=== PATIENT | male | born 1950 | race Caucasian/White ===

== ENCOUNTER 2020-07-23 14:44 | Emergency (ER) | payer OTHER, SELFPAY ==
--- NOTE | ~2020-07-23 | XR_ITS ---
Examination: XR shoulder LT min 2V, XR scapula LT Indication: left shoulder pain Comparison: No pertinent prior studies are currently available for comparison. Technique: 2 views of the left shoulder and single view of the left scapula Findings: Humeral head is well-seated in the glenoid fossa. I do not appreciate any acute fracture or dislocation. Mild hypertrophic degenerative changes in the acromioclavicular joint. I do not appreciate any discrete scapular fracture. Visualized left upper chest and ribs unremarkable XR/XR scapula LT Impression: Mild degenerative changes in the acromioclavicular joints but no underlying acute bony abnormality.
--- NOTE | ~2020-07-23 | XR_ITS ---
Examination: XR shoulder LT min 2V, XR scapula LT Indication: left shoulder pain Comparison: No pertinent prior studies are currently available for comparison. Technique: 2 views of the left shoulder and single view of the left scapula Findings: Humeral head is well-seated in the glenoid fossa. I do not appreciate any acute fracture or dislocation. Mild hypertrophic degenerative changes in the acromioclavicular joint. I do not appreciate any discrete scapular fracture. Visualized left upper chest and ribs unremarkable XR/XR shoulder LT min 2V Impression: Mild degenerative changes in the acromioclavicular joints but no underlying acute bony abnormality.
[2020-07-23 16:09] VITALS: BP 181/84; PULSE 64; RESP 16; TEMP 36.5; O2SAT 97; BMI 35.4
--- NOTE | 2020-07-23 17:45 | ECG_ITS ---
Test Reason : LEFT SHOULDER PAIN Blood Pressure : / mmHG Vent. Rate : 056 BPM Atrial Rate : 056 BPM P-R Int : 154 ms QRS Dur : 092 ms QT Int : 430 ms P-R-T Axes : 021 -40 -03 degrees QTc Int : 414 ms Sinus bradycardia Left axis deviation Abnormal ECG No previous ECGs available Referred By: Esteban Oneal Electronically Signed By:MANDO STUBBS
--- NOTE | 2020-07-23 18:03 | ED.EXTPRO ---
HPI - Extremity Problem General Chief complaint: Extremity Injury, Upper Stated complaint: L BACK SHOULDER PAIN Time Seen by Provider: 07/23/20 17:45 Source: patient Mode of arrival: ambulatory Limitations: no limitations History of Present Illness HPI Narrative: Patient presents to for left shoulder/left scapular pain that is worse on movement since Tuesday. Patient states on Tuesday and Tuesday he went skiing and had repetitive movements of his upper extremity expresses left shoulder. Patient states since he felt a pinching sensation in left scapula and left shoulder going down left arm. Patient was seen at the [facility] on Tuesday had normal cardiac evaluation but had no imaging done of shoulder/back. Patient states pain is worse on movement. Patient denies any chest pain, shortness of breath, or chest pain on inspiration. Patient denies any blunt trauma to the shoulder, chest, back, or scapula. Patient denies Any blunt trauma to the body. Patient denies falling. Patient denies any headache or dizziness. Patient denies any head trauma. Related Data Previous Rx's Medication Instructions Recorded cyclobenzaprine 10 mg PO TID PRN #18 tab 07/23/20 naproxen 500 mg PO BID PRN #20 tab 07/23/20 Allergies Allergy/AdvReac Type Severity Reaction Status Date / Time Penicillins Allergy Intermediate HIVES Verified 07/23/20 20:26 Review of Systems Review of Systems: Yes all other systems are reviewed and are negative Constitutional: Constitutional: Reports as per HPI and Reports no additional constitutional complaints Eyes: Eyes: Reports as per HPI and Reports no additional eye complaints ENT: Reports system reviewed and no additional complaints, except as documented and Reports as per HPI Cardiovascular: Cardiovascular: Reports as per HPI and Reports no additional cardiovascular complaints Respiratory: Respiratory: Reports as per HPI and Reports no additional respiratory complaints Gastrointestinal: Gastrointestinal: Reports as per HPI and Reports no additional gastrointestinal complaints Genitourinary: Genitourinary: Reports no additional male genitourinary complaints and Reports as per HPI Musculoskeletal: Musculoskeletal: Reports no additional musculoskeletal complaints, Reports as per HPI and Reports arthralgias (shoulder, and left scapula) Neurologic: Reports system reviewed and no additional complaints, except as documented and Reports as per HPI Psychiatric: Psychiatric: Reports no additional psychiatric complaints and Reports as per HPI [facility] Past Medical History Medical History (Updated 07/24/20 @ 00:01 by Background Daemon) HTN (hypertension) Social History Social History Alcohol intake: current Alcohol intake frequency: 0-2 drinks per day Alcohol type: beer Smoking Status: Former smoker Use of substances other than those prescribed or required for medical reasons: No Advance Directives: Yes Advance Directives Information Provided: No Advance Directives on File: No Physical Exam Vital Signs: Vital Signs: Last Vital Signs Temp 97.7 F 07/23/20 16:09 Pulse 58 07/23/20 20:08 Resp 16 07/23/20 20:08 BP 161/78 H 07/23/20 20:08 Pulse Ox 98 07/23/20 20:08 Body Mass Index 35.4 Const: General: cooperative, healthy appearing, comfortable, no acute distress, well developed, alert, awake and Physically active Orientation/consciousness: patient oriented x3 HENMT: Head: Yes normal to inspection, Yes No palpable skull fracture present, Yes normocephalic, Yes atraumatic, No abrasion, No Bass's sign, No contusion, No cranial bruits, No hematoma, No laceration, No occipital foramen tenderness, No palpable skull fracture, No raccoon eyes, No scalp lesion, No scalp tenderness, No Temporal artery tenderness present and No periorbital ecchymosis Eyes: General: appearance normal, both eyes and all related structures Neck: Neck: Yes normal visual inspection, Yes full ROM, Yes no lymphadenopathy, Yes no meningeal signs, Yes trachea midline, Yes supple and No tender Chest: Chest palpation & inspection: normal inspection of the chest and normal palpation of entire chest wall Resp: Effort & Inspection: normal respiratory effort and able to speak in complete sentences Cardio: Jugular venous distension: no JVD Heart sounds: S1 normal heart sound present and S2 normal heart sound present GI: Inspection: Yes normal to inspection and No abdominal wall ecchymosis Palpation (GI): Soft to palpation, not firm, nontender, no guarding and not rigid : General: No CVA tenderness and Yes no CVA tenderness Back/Spine/Pelvis: Back: no CVA tenderness, No CVA tenderness and No back tenderness Skin: General skin exam: no rashes or lesions noted and elasticity normal Neuro: General: patient oriented x3, no meningeal signs and CN's II-XI intact bilaterally Cranial nerves: Yes CN's II-XII intact bilaterally Extrem: Other: Positive for tenderness on palpation of left posterior shoulder/scapular area and it is worse on movement. Left upper extremity negative for swelling, redness, mass on palpation or deformity. Lower extremity negative for swelling, pitting edema, calf tenderness Course Course Course Narrative: Due to patient's age will have a cardiac workup, but not suspecting aortic dissection or PE. Patient denies any chest pain radiating to the back. Patient denies any chest pain on inspiration. Patient only described as left shoulder scapular pain that is worse on movement and feel like this pinching sensation going down left arm he to skiing. Patient did not have any imaging at the [facility] so he will have his shoulder and scapular x-ray done today. Troponin suffice. Patient had normal cardiac evaluation on Tuesday with with doing repeat due to his age. Reevaluation(s) Reevaluation #1: Patient's troponin negative. EKG negative for STEMI. CBC normal. Shoulder x-ray negative for fractures but showed arthritis. Scapular x-ray negative for fracture as expected. Most likely patient has a shoulder muscle strain/tear and will need MRI to evaluate for shoulder muscle tear or back strain. Patient does not want to wait for results of repeat chemistry. Patient informed we wanted to evaluate electrolytes and kidney function to be normal. Patient made aware of kidney failure hyperkalemia but still would like to sign against medical advice even being from a possibility of . Reevaluation #2: Patient be discharged with naproxen and cyclobenzaprine. Patient informed not to take Flexeril and Tylenol 3 at the same time. Patient informed to stop taking Tylenol 3 since he states he does not like it and does not work. MDM - Extremity (Nontraumatic) MDM Narrative Medical decision making narrative: Shoulder strain possible tear Lab Data Result diagrams: 07/23/20 18:21 07/23/20 18:21 Labs: Lab Results 07/23/20 07/23/20 07/23/20 Range/Units 18:21 18:21 18:21 WBC 8.9 (4.8-10.8) X10*3/uL RBC 5.00 (4.60-5.80) X10*6/uL Hgb 16.5 (14.0-18.0) g/dl Hct 45.8 (42-52) % MCV 91.6 (80-98) fL MCH 33.0 (27.0-33.0) pg MCHC 36.0 (31.0-36.0) g/dl RDW 12.9 (11.0-16.0) % Plt Count 195 (160-400) X10*3/uL MPV 9.9 (9.4-12.4) fL Immature Gran % (Auto) 0.7 H (0.0-0.4) % Neut % (Auto) 65.6 (45-73) % Lymph % (Auto) 24.9 (20-40) % Harlan % (Auto) 6.1 (2-11) % Eos % (Auto) 1.8 (0-4) % Baso % (Auto) 0.9 (0-2) % Lymph # (Auto) 2.2 (1.2-4.9) X10*3/uL Harlan # (Auto) 0.5 (0.1-1.2) X10*3/uL Eos # (Auto) 0.2 (0.0-0.4) X10*3/uL Baso # (Auto) 0.1 (0.0-0.2) X10*3/uL Abs Immat Gran (auto) 0.06 H (0.00-0.03) X10*3/uL Absolute Neuts (auto) 5.8 (2.0-8.3) X10*3/uL Absolute Nucleated RBC 0.000 (0.0-0.012) X10*3/uL Nucleated RBC % (auto) 0.0 (0.0-0.2) /100WBC PT (10.8-13.0) SEC INR (0.9-1.1) APTT (24.1-38.0) SEC Sodium 143 (135-145) mmol/L Potassium 4.1 (3.3-5.1) mmol/L Chloride 103 (96-108) mmol/L Carbon Dioxide 28 (22-29) mmol/L Anion Gap 16 (12-20) BUN 17 H (9-16) mg/dL Creatinine 1.04 (0.5-1.4) mg/dL Estim Creat Clear Calc 80.3 Estimated GFR > 60 Random Glucose 93 (60-115) mg/dL Calcium 9.9 (8.4-10.2) mg/dL Total Bilirubin 0.7 (0.0-1.0) mg/dL AST 28 (5-37) U/L ALT 25 (0-40) U/L Alkaline Phosphatase 100 (39-117) U/L Troponin I High Sens < 3.5 (<3.5-35.0) ng/L Total Protein 7.6 (6.5-8.0) g/dL Albumin 4.6 (3.5-5.0) g/dL 07/23/20 Range/Units 19:29 WBC (4.8-10.8) X10*3/uL RBC (4.60-5.80) X10*6/uL Hgb (14.0-18.0) g/dl Hct (42-52) % MCV (80-98) fL MCH (27.0-33.0) pg MCHC (31.0-36.0) g/dl RDW (11.0-16.0) % Plt Count (160-400) X10*3/uL MPV (9.4-12.4) fL Immature Gran % (Auto) (0.0-0.4) % Neut % (Auto) (45-73) % Lymph % (Auto) (20-40) % Harlan % (Auto) (2-11) % Eos % (Auto) (0-4) % Baso % (Auto) (0-2) % Lymph # (Auto) (1.2-4.9) X10*3/uL Harlan # (Auto) (0.1-1.2) X10*3/uL Eos # (Auto) (0.0-0.4) X10*3/uL Baso # (Auto) (0.0-0.2) X10*3/uL Abs Immat Gran (auto) (0.00-0.03) X10*3/uL Absolute Neuts (auto) (2.0-8.3) X10*3/uL Absolute Nucleated RBC (0.0-0.012) X10*3/uL Nucleated RBC % (auto) (0.0-0.2) /100WBC PT 11.7 (10.8-13.0) SEC INR 1.0 (0.9-1.1) APTT 42.8 H (24.1-38.0) SEC Sodium (135-145) mmol/L Potassium (3.3-5.1) mmol/L Chloride (96-108) mmol/L Carbon Dioxide (22-29) mmol/L Anion Gap (12-20) BUN (9-16) mg/dL Creatinine (0.5-1.4) mg/dL Estim Creat Clear Calc Estimated GFR Random Glucose (60-115) mg/dL Calcium (8.4-10.2) mg/dL Total Bilirubin (0.0-1.0) mg/dL AST (5-37) U/L ALT (0-40) U/L Alkaline Phosphatase (39-117) U/L Troponin I High Sens (<3.5-35.0) ng/L Total Protein (6.5-8.0) g/dL Albumin (3.5-5.0) g/dL ECG Data Interpretation: Sinus bradycardia. Ventricular rate 56. Peer interval 154. QRS 92. QTC 414. Negative STEMI Discharge Plan Discharge Clinical Impression: Left shoulder strain Patient Disposition: Left Against Medical Advice Instructions: Rotator Cuff Injury (ED), Shoulder Sprain (ED) Additional Instructions: Return to the ED for any chest pain radiating to the back, chest pain, chest pain on inspiration, swelling of upper extremities, coughing up blood, fever, chills, paralysis of extremity, headache, dizziness, fever, chills, or any other concerning symptoms. Prescriptions: New naproxen 500 mg tablet 500 mg PO BID PRN (Reason: pain) Qty: 20 RF: 0 cyclobenzaprine 10 mg tablet 10 mg PO TID PRN (Reason: pain) Qty: 18 RF: 0 Referrals: Weston Hughes PA [Primary Care Provider] - 2 days (Shoulder strain possible muscle/shoulder tear. Will need MRI for further evaluation. EKG troponin is negative. Shoulder/scapular x-ray negative for any fractures.) Stand Alone Forms: Against Medical Advice Interventions: ED Discharge Assessment Last Done: 07/23/20 21:06 Discharge Date/Time: 07/23/20 21:08 Print Language: Serbian
[2020-07-23 18:41] LABS: MANUAL DIFF FLAG NO
[2020-07-23 18:47] LABS: Basophils Absolute Auto 0.1 X10*3/uL (0.0-0.2); Basophils Percent Auto 0.9 % (0-2); Eosinophils Absolute Auto 0.2 X10*3/uL (0.0-0.4); Eosinophils Percent Auto 1.8 % (0-4); Hematocrit 45.8 % (42-52); Hemoglobin 16.5 g/dl (14.0-18.0); Imm Gran Abs Auto 0.06 X10*3/uL (0.00-0.03); Imm Gran Pct Auto 0.7 % (0.0-0.4); Lymphocytes Absolute Auto 2.2 X10*3/uL (1.2-4.9); Lymphocytes Percent Auto 24.9 % (20-40); Mean Corpuscular Volume 91.6 fL (80-98); Mean Platelet Volume 9.9 fL (9.4-12.4); Monocytes Absolute Auto 0.5 X10*3/uL (0.1-1.2); Monocytes Percent Auto 6.1 % (2-11); Neutrophils Absolute Auto 5.8 X10*3/uL (2.0-8.3); Neutrophils Percent Auto 65.6 % (45-73); Platelet Count 195 X10*3/uL (160-400); Red Cell Distribution Width 12.9 % (11.0-16.0); White Blood Count 8.9 X10*3/uL (4.8-10.8)
[2020-07-23 19:18] LABS: Troponin-I High Sensitivity < 3.5 ng/L (<3.5-35.0)
[2020-07-23 19:45] LABS: Prothrombin Time 11.7 SEC (10.8-13.0)
[2020-07-23 19:48] LABS: Partial Thromboplastin Time 42.8 SEC (24.1-38.0)
[2020-07-23 20:08] VITALS: BP 161/78; PULSE 58; RESP 16; O2SAT 98
[2020-07-23] MEDS: Ketorolac Tromethamine 60 MG/2 ML VIAL IM (20:29)
[2020-07-23 23:47] LABS: Alanine Aminotransferase 25 U/L (0-40); Albumin Level 4.6 g/dL (3.5-5.0); Alkaline Phosphatase 100 U/L (39-117); Anion Gap 16 (12-20); Aspartate Amino Transferase 28 U/L (5-37); Bilirubin Total 0.7 mg/dL (0.0-1.0); Blood Urea Nitrogen 17 mg/dL (9-16); Calcium 9.9 mg/dL (8.4-10.2); Carbon Dioxide 28 mmol/L (22-29); Chloride 103 mmol/L (96-108); Creatinine Clr Calc Pharmacy 80.3; Estimated Glomerular Filt Rate > 60; Glucose Random 93 mg/dL (60-115); Potassium 4.1 mmol/L (3.3-5.1); Sodium 143 mmol/L (135-145); Total Protein 7.6 g/dL (6.5-8.0)
== END 2020-07-23 21:08 | disposition left against medical advice (07) ==
PROVIDERS: Physician Assistant; Emergency Provider Emergency Medicine; PCP Physician Assistant
DX: S46.012A Strain of muscle(s) and tendon(s) of the rotator cuff of left shoulder, initial encounter (principal); X50.3XXA Overexertion from repetitive movements, initial encounter; I10 Essential (primary) hypertension; R00.1 Bradycardia, unspecified; Y93.23 Activity, snow (alpine) (downhill) skiing, snowboarding, sledding, tobogganing and snow tubing; Y92.828 Other wilderness area as the place of occurrence of the external cause; Y99.8 Other external cause status; Z87.891 Personal history of nicotine dependence
CPT/HCPCS: 36415; 73010; 73030; 80053; 84484; 85025; 85610; 85730; 93005; 96372; 99284; 99285; J1885